=== PATIENT | female | born 1975 | race Hispanic/Latino ===

== ENCOUNTER 2017-06-13 23:19 | Observation (INO) | payer OTHER, SELFPAY ==
[2017-06-14 00:01] LABS: #Basophils 0.1 thou/uL (0.0-0.2); #Eosinphils 0.7 thou/uL (0.0-0.7); #Lymphocytes 3.9 thou/uL (1.20-3.40); #Monocytes 0.9 thou/uL (0.11-0.59); #Neutrophils 6.1 thou/uL (1.40-6.50); %Basophils 0.4 % (0.0-1.0); %Lymphocytes 33.3 % (21.0-51.0); %Monocytes 7.7 % (0.0-10.0); Hematocrit 31.7 % (36.0-47.0); Mean Platelet Volume 7.2 fL (7.4-10.4); Red Blood Cell (RBC) Count 4.14 mill/uL (4.20-5.40); White Blood Cell (WBC) Count 11.6 thou/uL (4.8-10.8)
--- NOTE | 2017-06-14 00:07 | RAD ---
CHEST ONE VIEW PORTABLE: 06/13/17 HISTORY: 42-year-old female with chest pain in the mid chest with pressure which began 30 minutes prior to ad mission. COMPARISON: 10/25/13. FINDINGS/IMPRESSION: Heart size is within normal limits. The lungs are clear. No pneumonia, edema, pleural effusion, or o ther acute intrathoracic disease. POS: [facility]
[2017-06-14 00:21] LABS: ALT (SGPT) 14 U/L (8-55); AST (SGOT) 12 U/L (5-34); Alkaline Phosphatase 104 U/L (40-150); Anion Gap 15 mmol/L (10-20); BUN (Urea Nitrogen) 14 mg/dL (7.0-18.7); Bilirubin, Total 0.3 mg/dL (0.2-1.2); CK (CPK) 69 U/L (29-168); Calc. Creatinine Clearance 0 mL/min (70-130); Calcium 9.4 mg/dL (7.8-10.44); Carbon Dioxide 25 mmol/L (22-29); Chloride 102 mmol/L (98-107); Estimated GFR-MDRD Greater than 90; Globulin 3.1 g/dL (2.4-3.5); Lipase 33 U/L (8-78)
[2017-06-14 00:24] LABS: Troponin I Less than 0.010 ng/mL (< 0.028)
[2017-06-14] MEDS ORDERED: Nitroglycerin 2% Ointment 1 INCH/1 GM Packet ONE (01:20)
[2017-06-14] MEDS ORDERED: Acetaminophen 325 MG TAB PO PRN (04:18)
[2017-06-14] MEDS ORDERED: Nitroglycerin 0.4 MG TAB (25 Tab Bottle) PO PRN (04:18)
[2017-06-14] MEDS ORDERED: Dextrose 5% in Water 1,000 ML IV PRN (04:18)
[2017-06-14] MEDS ORDERED: Dextrose 50% Abboject 50 ML SYRINGE SLOW IVP PRN (04:18)
[2017-06-14] MEDS ORDERED: HumaLOG 300 UNITS/3 ML VIAL SC PRN (04:18)
[2017-06-14 04:47] LABS: Troponin I Less than 0.010 ng/mL (< 0.028)
[2017-06-14 05:10] LABS: Iron 25 ug/dL (50-170)
--- NOTE | 2017-06-14 05:33 | HP ---
REASON FOR ADMISSION: Chest pain. HISTORY OF PRESENT ILLNESS: The patient gives history of having retrosternal chest pain which was more like a pressure, which started around 10:30 p.m. yesterday while she was sitting and watching TV. The pain was 5/10 in intensity to start with, and lasted until 3 in the morning until she came to emergency room. She has had similar episode of pain 6 months back which got resolved by itself. She has no complaints of cough or expectoration. No complaints of palpitations, PND or orthopnea. She had a stress test done 8 years back which was normal as far she can remember. PAST MEDICAL/SURGICAL HISTORY: Hypertension, diabetes mellitus type 2, dyslipidemia, history of asthma, history of diverticulitis, hypothyroidism, cholecystectomy, , hysterectomy. CURRENT MEDICATIONS: Atorvastatin 10 mg p.o. at bedtime, levothyroxine 125 mcg p.o. daily, metformin 1000 mg p.o. twice daily, quinapril 20 mg p.o. q.a.m., albuterol inhaler p.r.n., glipizide 5 mg p.o. twice daily, Levemir 22 units subcu daily. ALLERGIES: PENICILLIN and LATEX GLOVES. PERSONAL HISTORY: Does not abuse alcohol or drugs. No history of smoking. FAMILY HISTORY: Mother at the age of 73 years. She has had history of coronary artery disease and diabetes. Father at the age of 76 years and he has had similar medical issues. REVIEW OF SYSTEMS: The following complete review of systems was negative, unless otherwise mentioned in the HPI or below: Constitutional: Weight loss or gain, ability to conduct usual activities. Skin: Rash, itching. Eyes: Double vision, pain. ENT/Mouth: Nose bleeding, neck stiffness, pain, tenderness. Cardiovascular: Palpitations, dyspnea on exertion, orthopnea. Respiratory: Shortness of breath, wheezing, cough, hemoptysis, fever or night sweats. Gastrointestinal: Poor appetite, abdominal pain, heartburn, nausea, vomiting, constipation, or diarrhea. Genitourinary: Urgency, frequency, dysuria, nocturia. Musculoskeletal: Pain, swelling. Neurologic/Psychiatric: Anxiety, depression. Allergy/Immunologic: Skin rash, bleeding tendency. PHYSICAL EXAMINATION: GENERAL: The patient is a 42-year-old female who is currently not in any acute distress and is chest pain free. VITAL SIGNS: Blood pressure 124/76, pulse 74 per minute, respiratory rate 20 per minute, temperature 98.1 degrees Fahrenheit, saturating 100% on room air. NECK: Supple, no elevated JVD. HEENT: Eyes; extraocular muscles intact. Pupils reacting to light. Oral cavity; mucous membranes are moist. No exudates or congestion. CARDIOVASCULAR: S1, S2 heard. Regular rhythm. RESPIRATORY: Air entry 2+ bilateral. No rales or rhonchi. ABDOMEN: Soft, bowel sounds heard. No tenderness, rigidity or guarding. EXTREMITIES: No peripheral edema or calf tenderness. VASCULAR SYSTEM: Peripheral pulses 2+ bilateral, no ischemic ulcerations or gangrene. CENTRAL NERVOUS SYSTEM: No gross focal deficits seen. Patient is alert, awake , oriented x3. PSYCHIATRIC: The patient's mood is euthymic. No hallucinations or delusions. LABORATORY AND X-RAY FINDINGS: Chest x-ray done shows no infiltrate or cardiomegaly. Electrolytes are stable. First set of cardiac enzymes are negative. BUN 14, creatinine 0.6, glucose 98. Lipase is 33, white count of 11 , H\T\H 10 and 31, platelet count 367, MCV is 76 with 52% neutrophils. EKG done shows normal sinus rhythm at 78 beats per minute. CLINICAL IMPRESSION AND PLAN: The patient will be under observation on telemetry for chest pain, rule out acute coronary syndrome. She has multiple risk factors for acute coronary syndrome. We will obtain one more set of cardiac enzymes and follow ACS evidence based protocol including a nuclear stress test. We will continue her on aspirin, Lipitor, Synthroid, quinapril for now. We will hold her diabetic medications for now and restart after her stress test is done. We will continue to closely monitor her for any hemodynamic compromise. BRISEYDA
[2017-06-14] MEDS ORDERED: Levothyroxine Sodium 125 MCG TAB PO SCH (06:00)
[2017-06-14 07:34] LABS: Troponin I Less than 0.010 ng/mL (< 0.028)
[2017-06-14] MEDS ORDERED: Enoxaparin Sodium 40 MG/0.4 ML SYRINGE SC SCH (09:00)
[2017-06-14] MEDS ORDERED: Famotidine 20 MG TAB PO SCH (09:00)
[2017-06-14] MEDS ORDERED: FLU VACC QS2017-18 36 mo. & older 0.5 ML SYRINGE IM ONE (09:00)
[2017-06-14] MEDS ORDERED: Aspirin 325 MG TAB PO SCH (09:00)
[2017-06-14] MEDS ORDERED: Nitroglycerin 2% Ointment 1 INCH/1 GM Packet TOP SCH (10:00)
[2017-06-14 11:25] VITALS: BP 119/56; TEMP 98.1
--- NOTE | 2017-06-14 11:45 | NM ---
RADIONUCLE STRESS ONLY MYOCARDIAL PERFUSION SCAN WITH SPECT IMAGING LEFT VENTRICULAR WALL MOTION EVALUATION AND EJECTION FRACTION: History: Chest pain. FINDINGS: Heterogeneous uptake of the radiotracer is present throughout the left ventricular myocardium with s ome breast attenuation evident. No focal perfusion defects are visible. QGS analysis of gated spect images shows no focal wall motion abnormalities. LVEF equals 86%. IMPRESSION: Normal stress only myocardial perfusion scan. Normal LVEF. POS: [facility]
[2017-06-14] MEDS ORDERED: Regadenoson 0.4 MG/5 ML SYRINGE ONE (12:00)
--- NOTE | 2017-06-14 13:13 | DIS ---
DATE OF ADMISSION: 06/14/2017 DATE OF DISCHARGE: 06/14/2017 TRANSFER OF CARE DISPOSITION: Discharged home. PRIMARY CARE PROVIDER: Dr. Mariely Rowe. FINAL DIAGNOSES: Reflux esophagitis, atypical chest pain, iron deficiency anemia, diabetes mellitus type 2, hypertension, and dyslipidemia. DISCHARGE MEDICATIONS: Home medicines plus ferrous sulfate 325 twice a day, Protonix 40 mg a day. Routine medicines; atorvastatin 10 mg a day, Levemir insulin 22 units subcu daily, levothyroxine 125 mcg daily, quinapril 20 mg a day, Glucotrol-XL 5 mg twice a day, metformin 1000 mg twice a day. ALLERGIES: PENICILLIN. PENDING AT TIME OF DISCHARGE: Nothing. CODE STATUS: FULL. HOSPITAL COURSE: The patient presented with a kind of substernal to epigastric pressure, wakes her at night. She has had multiple episodes over the past several years because of worries of heart dis ease; she was placed in the hospital. Her cardiac enzymes were normal x3. Comp metabolic profile w as normal. CBC showed white count of 11.6, hemoglobin 10.2 with microcytic micro-chromic indices an d platelet count of 367. Ferritin was 7.11, iron saturation was 6. Nuclear medicine cardiac stress test is normal. It is my conclusion that the patient probably has esophagitis or gastritis. I sasha pect one or the other leading to iron deficiency anemia. No consultations were obtained. No proced ures were done. She is being discharged for followup with Dr. Rowe in 1 week. She has been gi neo a prescription for the Protonix and the iron as she will need 6 months of iron therapy to restor e her normal iron balance. In addition, I would suggest considering an outpatient gastroenterology referral for EGD for gastritis, esophagitis.
[2017-06-14] MEDS ORDERED: Atorvastatin Calcium 10 MG TAB PO SCH (21:00)
--- NOTE | 2017-06-16 12:09 | STRESS ---
Acquisition Time: 2017-06-14 08:51:11 Total Exercise Time: 00:01:00 Test Indications: CHEST PAIN Medications: Protocol: [facility] Max HR: 148 BPM 84% of Pred: 176 BPM Max BP: 128/088 mmHG Max Work Load: 1.0 METS RESTING ECG: NORMAL SINUS RHYTHM AT 93 BPM SYMPTOMS: NONE NORMAL BP RESPONSE ECTOPY: NONE ECG STRESS: NO SIGNIFICANT CHANGES INTERPRETATION: AWAIT NUCLEAR IMAGES FOR DEFINITIVE DIAGNOSIS Confirmed by JJ ELIAS ([id number]), editorial manager FRIDA CORTEZ ([id number]) on 06/16/2017 12:09:06 PM Referred By: MD Ramiro MUNOZ Confirmed By:JJ ELIAS
== END 2017-06-14 12:06 | disposition home or self-care (01) ==
LOC: ERS 23:19 → 2SW 06-14 03:27
PROVIDERS: ADMIT Internal Medicine; ATTEND Internal Medicine
DX: R07.89 Other chest pain (principal); K21.0 Gastro-esophageal reflux disease with esophagitis; D50.9 Iron deficiency anemia, unspecified; E11.9 Type 2 diabetes mellitus without complications; I10 Essential (primary) hypertension; E78.5 Hyperlipidemia, unspecified; J45.909 Unspecified asthma, uncomplicated; E03.9 Hypothyroidism, unspecified; Z79.4 Long term (current) use of insulin; Z79.899 Other long term (current) drug therapy; Z91.040 Latex allergy status; Z88.0 Allergy status to penicillin; Z91.048 Other nonmedicinal substance allergy status; Z90.49 Acquired absence of other specified parts of digestive tract; Z90.710 Acquired absence of both cervix and uterus; Z98.890 Other specified postprocedural states
CPT/HCPCS: 36415; 36416; 71010; 78452; 80053; 80061; 82550; 82553; 82607; 82728; 82746; 83540; 83550; 83690; 84484; 85025; 90471; 90682; 90732; 93005; 93017; 96372; A9500; G0008; G0009; G0378; J1650; J2785; Q2036

== ENCOUNTER 2018-08-18 15:04 | Emergency (ER) | payer OTHER, SELFPAY ==
[2018-08-18 15:36] LABS: Bilirubin Negative (Negative); Blood, Urine Negative (Negative); Clarity CLEAR (Clear); Glucose, Urine (Dipstick) Negative (Negative); Leukocyte Small (Negative); Nitrite Negative (Negative); Protein, Urine (Dipstick) Negative (Neg-Trace); Specific Gravity, Urine 1.008 (1.002-1.036); Urobilinogen 0.2 mg/dL (0.2-1.0)
[2018-08-18 15:38] LABS: Bacteria/HPF None Seen HPF (None Seen); Hyaline Casts/LPF 0-3 HYALINE CAST LPF (0-3 Hyaline); Pathc Cast-AUWi Flag 0.29 (0-2.49); RBC/HPF 0-3 HPF (0-3)
[2018-08-18 15:54] LABS: #Basophils 0.1 thou/uL (0.0-0.2); #Eosinphils 0.3 thou/uL (0.0-0.7); #Monocytes 0.6 thou/uL (0.11-0.59); #Neutrophils 6.2 thou/uL (1.40-6.50); %Basophils 0.5 % (0.0-1.0); %Eosinophils 3.4 % (0.0-10.0); %Lymphocytes 29.5 % (21.0-51.0); %Monocytes 5.6 % (0.0-10.0); %Neutrophils 60.9 % (42.0-75.0); Hemoglobin 11.7 g/dL (12.0-16.0); Mean Corpuscular HGB CONC 32.4 g/dL (32.0-36.0); Mean Corpuscular Hemoglobin 25.5 pg (27.0-31.0); Mean Corpuscular Volume 78.9 fL (78.0-98.0); Platelet Count 318 thou/uL (130-400); RBC Distribution Width 15.2 % (11.5-14.5); Red Blood Cell (RBC) Count 4.58 mill/uL (4.20-5.40); White Blood Cell (WBC) Count 10.2 thou/uL (4.8-10.8)
[2018-08-18 16:07] LABS: BHCG - Serum Negative (NEGATIVE); Pregs Control Background? CLEAR/WHITE (CLR/WHITE); Pregs Control Bar Appear? YES (CONTROL BAR)
[2018-08-18 16:15] LABS: ALT (SGPT) 15 U/L (8-55); AST (SGOT) 12 U/L (5-34); Alkaline Phosphatase 99 U/L (40-150); Anion Gap 14 mmol/L (10-20); BUN (Urea Nitrogen) 9 mg/dL (7.0-18.7); Bilirubin, Total 0.2 mg/dL (0.2-1.2); Calc. Creatinine Clearance 0 mL/min (70-130); Calcium 9.2 mg/dL (7.8-10.44); Carbon Dioxide 23 mmol/L (22-29); Chloride 104 mmol/L (98-107); Estimated GFR-MDRD Greater than 90; Globulin 3.2 g/dL (2.4-3.5); Glucose 170 mg/dL (70-105); Lipase 38 U/L (8-78); Potassium 3.7 mmol/L (3.5-5.1); Protein, Total 7.2 g/dL (6.0-8.3); Sodium 137 mmol/L (136-145)
--- NOTE | 2018-08-18 16:35 | ULT ---
PELVIC ULTRASOUND : 08/18/18 HISTORY: Left lower quadrant and pelvic pain. COMPARISON: 04/13/18. FINDINGS: Multiple transabdominal and endovaginal sonographic images of the pelvis a re obtained. The uterus a nd right adnexa structures are not well visualized on transabdominal imaging. There is a hypoechoic s tructure seen within the left adnexa only seen on transabdominal imaging which measures 5.9 cm, x 5.3 cm x 6 cm. there is posterior acoustic enhancement. There is internal echogenicity within this cysti c appearing lesion. This may be secondary to artifact given depth of this structure beneath the skin surface and this could potentially represent a left ovarian cystic lesion. However, this cannot be de finitively confirmed on this exam. A normal appearing left ovary is not visualized. The right ovary d emonstrates a normal sonographic appearance with peripheral follicles and is seen on endovaginal imag ing measuring 2,1 cm x 3 cm x 2 cm. Doppler evaluation of the right ovary with spectral analysis and color flow evaluation does demonstrate arterial flow within the right ovary. The uterus demonstrates a normal sonographic appearance measuring 7.9 cm x 5.6 cm x 6.1 cm. The endo metrial stripe measures 1 cm which is within normal limits in a normal menstruating female patient bu t would be abnormal in a postmenopausal female patient. No free fluid is seen in the pelvis. IMPRESSION: 1. Hypoechoic cystic appearing structure in the left adnexal region only seen on transabdominal imaging. This area could not be visualized on endovaginal imaging. A normal appearing left ovary is not visualized. This structure within the left adnexa does demonstrate internal echogenicity which ma y be artifactual given depth of this structure below the skin surface and could potentially represent a left adnexal cyst and possibly ovarian cyst, but this cannot be definitely confirmed on this exam. Followup pelvic ultrasound examination in six weeks is recommended. 2. Normal appearing uterus and right ovary. 3. Endometrial stripe measures 1 cm in thickness without fluid collection or fluid within the en dometrial canal. The thickness of the endometrium is within normal limits for a premenopausal female patient but would be abnormal in thickness in a postmenopausal female patient. POS: [facility]
[2018-08-18] MEDS ORDERED: HYDROcodone/Acetaminophen 5/325 mg Tablet ONE (16:48)
[2018-08-18] MEDS ORDERED: Ketorolac Tromethamine 60 MG/2 ML VIAL ONE (16:49)
== END 2018-08-18 17:30 | disposition home or self-care (01) ==
LOC: ERS 15:04
DX: N83.202 Unspecified ovarian cyst, left side (principal); E03.9 Hypothyroidism, unspecified; E11.9 Type 2 diabetes mellitus without complications; I10 Essential (primary) hypertension; J45.909 Unspecified asthma, uncomplicated; Z79.899 Other long term (current) drug therapy; Z79.4 Long term (current) use of insulin
CPT/HCPCS: 36415; 76856; 80053; 81003; 81015; 83690; 84703; 85025; 96372; J1885

== ENCOUNTER 2018-10-30 02:59 | Emergency (ER) | payer SELFPAY ==
[2018-10-30 03:48] LABS: Bilirubin Negative (Negative); Blood, Urine Negative (Negative); Clarity CLOUDY (Clear); Glucose, Urine (Dipstick) Negative (Negative); Leukocyte Large (Negative); Nitrite Negative (Negative); Protein, Urine (Dipstick) Negative (Neg-Trace); Specific Gravity, Urine 1.024 (1.002-1.036); Urobilinogen 0.2 mg/dL (0.2-1.0); pH, Urine 5.5 (5.0-9.0)
[2018-10-30 03:50] LABS: Bacteria/HPF 1+ HPF (None Seen); Hyaline Casts/LPF 7-10 HYALINE CAST LPF (0-3 Hyaline); Pathc Cast-AUWi Flag 1.01 (0-2.49)
[2018-10-30 03:56] LABS: Pregnancy Test - Urine (BHCG) Negative (Negative); Pregu Control Background? CLEAR/WHITE (CLR/WHITE); Pregu Control Bar Appear? YES (CONTROL BAR); Specific Gravity 1.024 (1.002-1.036)
[2018-10-30] MEDS ORDERED: Ondansetron PF 4 MG/2 ML Vial ONE (04:33)
[2018-10-30] MEDS ORDERED: Morphine 4 MG/ML VIAL ONE (04:33)
[2018-10-30 04:37] LABS: #Eosinphils 0.3 thou/uL (0.0-0.7); #Lymphocytes 2.7 thou/uL (1.20-3.40); #Monocytes 0.6 thou/uL (0.11-0.59); #Neutrophils 5.6 thou/uL (1.40-6.50); %Basophils 0.3 % (0.0-1.0); %Eosinophils 3.6 % (0.0-10.0); %Lymphocytes 29.2 % (21.0-51.0); %Monocytes 6.5 % (0.0-10.0); %Neutrophils 60.3 % (42.0-75.0); Hemoglobin 11.1 g/dL (12.0-16.0); Mean Corpuscular HGB CONC 32.7 g/dL (32.0-36.0); Mean Corpuscular Hemoglobin 25.9 pg (27.0-31.0); Mean Corpuscular Volume 79.2 fL (78.0-98.0); Platelet Count 335 thou/uL (130-400); RBC Distribution Width 15.6 % (11.5-14.5); White Blood Cell (WBC) Count 9.3 thou/uL (4.8-10.8)
[2018-10-30 04:57] LABS: ALT (SGPT) 10 U/L (8-55); AST (SGOT) 12 U/L (5-34); Albumin 3.9 g/dL (3.5-5.0); Alkaline Phosphatase 91 U/L (40-150); Anion Gap 16 mmol/L (10-20); BUN (Urea Nitrogen) 8 mg/dL (7.0-18.7); Bilirubin, Total 0.4 mg/dL (0.2-1.2); Calc. Creatinine Clearance 0 mL/min (70-130); Calcium 9.4 mg/dL (7.8-10.44); Carbon Dioxide 20 mmol/L (22-29); Chloride 105 mmol/L (98-107); Estimated GFR-MDRD 89; Globulin 3.1 g/dL (2.4-3.5); Glucose 129 mg/dL (70-105); Sodium 137 mmol/L (136-145)
[2018-10-30] MEDS ORDERED: Ketorolac Tromethamine 30 MG/ML VIAL ONE (05:25)
--- NOTE | 2018-10-30 07:38 | CT ---
ABDOMEN AND PELVIC CT WITH CONTRAST: INDICATION: Abdominal pain. COMPARISON: 01/08/2014. FINDINGS: The bowel is incompletely assessed without enteric contrast. There is no free air or ascites. No ac makah abnormality of the solid abdominal organs. Evidence of prior cholecystectomy. Imaged lung bases are clear. Punctate nephrolithiasis is seen at lower pole right kidney, nonobstructing. No acute o sseous abnormality. There is a 3.5 cm circumscribed subtle hypodense fat density component of the ve ntral abdominal wall, at the mid to lower abdomen. This is grossly stable and could relate to a mild ly complex lipomatous lesion. IMPRESSION: 1. No acute abnormality. 2. Nonobstructing right nephrolithiasis. POS: [facility]
[2018-10-30] MEDS ORDERED: ISOVUE-370 76%-LOCM 1 ML ONE (09:55)
--- NOTE | 2018-10-30 12:31 | ULT ---
PRELIMINARY REPORT/[facility]/EMERGENTY AFTER-HOURS PROCEDURE US Pelvis Complete, Transabdominal and US Pelvis, Transvaginal US Duplex Artery or Vein of the Abdominal and/or Reproductive Organs, Limited Ovaries EXAM DATE/TIME: 10/30/2018 3:35 AM CLINICAL HISTORY: 43 years old, female; Pain; Pelvic pain; Prior surgery; Surgery date: 6+ months; Surgery type: Lt oop horectomy (1998); Patient HX: Llq pain x yrs (on/off) TECHNIQUE: Real-time transabdominal and transvaginal pelvic ultrasound (complete) with image documentation. [place] svaginal imaging was used for better evaluation of the endometrium and adnexa. Real-time duplex ultra sound scan of the arterial or venous flow with chase scale, color Doppler flow and spectral waveform a nalysis. Limited duplex exam focused on the ovaries. Duplex exam was performed to evaluate for ovarian torsion or mass. COMPARISON: No relevant prior studies available. FINDINGS: Transabdominal ultrasound did not reveal detailed visualization of uterus. Right ovary was also not v isualized on transabdominal ultrasound. Therefore a transvaginal ultrasound was performed for further evaluation. Duplex ultrasound scan with color Doppler flow and spectral waveform analysis was also performed for evaluation of pelvic and ovarian blood flow and torsion. Uterus/cervix: Endometrium measures 1.3cm in thickness. No myometrial mass. Small Nabothian cyst. Right adnexa: No acute findings. No mass. Normal duplex of the ovary. No evidence of torsion. Left adnexa: Prior oopherectomy. Questionable mass versus bowel loop in the adnexa. Suboptimal evalua tion due to bowel gas. Free fluid: Trace. Bladder: Decompressed. IMPRESSION: Prior left oopherectomy. Questionable mass versus bowel loop in the left adnexa; recommend further ev aluation with contrast enhanced CT as indicated. Mildly thickened endometrium; correlate with menstrual cycle. Thank you for allowing us to participate in the care of your patient. Dictated and Authenticated by: Billy Suero MD 10/30/2018 4:54 AM Central Time ([place] & [place]) FINAL REPORT PELVIC ULTRASOUND: HISTORY: Pain. COMPARISON: None. TECHNIQUE: Transabdominal and endovaginal imaging of the pelvis was performed. Ovaries are interrogated with gr ay scale, color flow, Doppler imaging, and spectral waveform analysis. FINDINGS: This report is in agreement with the preliminary report by [facility]. Visualized uterus is unremarkable. Incidental Nabothian cyst is noted. Limited evaluation of the left adnexa. Questionable mass versus bowel loop. Refer to CT performed l ater on the same day for further evaluation. The right ovary has a normal appearance. POS: [facility]
== END 2018-10-30 06:56 | disposition home or self-care (01) ==
LOC: ERS 02:59
DX: R10.32 Left lower quadrant pain (principal); E03.9 Hypothyroidism, unspecified; E11.9 Type 2 diabetes mellitus without complications; I10 Essential (primary) hypertension; J45.909 Unspecified asthma, uncomplicated; F41.9 Anxiety disorder, unspecified; Z79.899 Other long term (current) drug therapy; Z79.51 Long term (current) use of inhaled steroids; Z79.4 Long term (current) use of insulin
CPT/HCPCS: 74177; 76856; 80053; 81003; 81015; 81025; 85025; 96361; 96374; 96375; J1885; J2270; J2405; Q9966

== ENCOUNTER 2019-03-26 12:47 | Outpatient (CLI) | payer OTHER ==
--- NOTE | 2019-03-26 13:37 | RAD ---
XR Foot Rt 3 View STANDARD HISTORY: Trauma to foot Findings: There are no signs of fracture or dislocation. A spur at the plantar fascia insertion is no yanique. IMPRESSION: No evidence of fracture.
== END 2019-03-26 12:48 | disposition home or self-care (01) ==
LOC: BICRAD 12:47
PROVIDERS: ATTEND Family Medicine
DX: M79.671 Pain in right foot (principal)

== ENCOUNTER 2019-04-01 03:13 | Emergency (ER) | payer SELFPAY ==
[2019-04-01 04:10] LABS: Bacteria/HPF None Seen HPF (None Seen); Bilirubin Negative (Negative); Blood, Urine Negative (Negative); Clarity Clear (Clear); Glucose, Urine (Dipstick) Normal (Negative); Leukocyte 250 Leu/uL (Negative); Nitrite Negative (Negative); Protein, Urine (Dipstick) Negative (Neg-Trace); Urobilinogen Normal mg/dL (Less than 2)
[2019-04-01 04:11] LABS: Pregnancy Test - Urine (BHCG) Negative (Negative); Pregu Control Background? CLEAR/WHITE (CLR/WHITE); Pregu Control Bar Appear? YES (CONTROL BAR); Specific Gravity 1.022 (1.002-1.036)
[2019-04-01] MEDS ORDERED: Morphine 4 MG/ML VIAL ONE (04:18)
[2019-04-01] MEDS ORDERED: Ketorolac Tromethamine 30 MG/ML VIAL ONE (04:18)
[2019-04-01 04:47] LABS: Hemoglobin 9.8 g/dL (12.0-16.0); Mean Corpuscular HGB CONC 30.4 g/dL (32.0-36.0); Mean Corpuscular Hemoglobin 21.9 pg (27.0-31.0); Mean Corpuscular Volume 71.9 fL (78.0-98.0); Platelet Count 254 thou/uL (130-400); Red Blood Cell (RBC) Count 4.46 mill/uL (4.20-5.40); White Blood Cell (WBC) Count 11.7 thou/uL (4.8-10.8)
[2019-04-01 04:49] LABS: ALT (SGPT) 10 U/L (8-55); AST (SGOT) 12 U/L (5-34); Albumin 3.9 g/dL (3.5-5.0); Alkaline Phosphatase 109 U/L (40-150); Anion Gap 13 mmol/L (10-20); BUN (Urea Nitrogen) 12 mg/dL (7.0-18.7); Bilirubin, Total 0.3 mg/dL (0.2-1.2); Calc. Creatinine Clearance 0 mL/min (70-130); Calcium 8.9 mg/dL (7.8-10.44); Carbon Dioxide 22 mmol/L (22-29); Chloride 104 mmol/L (98-107); Estimated GFR-MDRD Greater than 90; Globulin 2.9 g/dL (2.4-3.5); Glucose 139 mg/dL (70-105); Lipase 40 U/L (8-78); Potassium 3.9 mmol/L (3.5-5.1); Protein, Total 6.8 g/dL (6.0-8.3); Sodium 135 mmol/L (136-145)
[2019-04-01 05:06] LABS: #Eosinphils 0.3 thou/uL (0.0-0.7); #Monocytes 0.8 thou/uL (0.11-0.59); #Neutrophils 7.5 thou/uL (1.40-6.50); %Basophils 0.1 % (0.0-1.0); %Eosinophils 2.9 % (0.0-10.0); %Lymphocytes 25.5 % (21.0-51.0); %Monocytes 7.2 % (0.0-10.0); %Neutrophils 64.3 % (42.0-75.0); Anisocytosis SLIGHT = 6-15 cells (100X) (0-5/hpf); MDiff Complete? YES; Microcytosis SLIGHT = 6-15 cells (100X) (0-5/hpf)
--- NOTE | 2019-04-01 07:32 | ULT ---
TRANSVAGINAL AND TRANSABDOMINAL PELVIC ULTRASOUND: INDICATION: History of left lower quadrant abdominal pain. COMPARISON: Prior CT of the abdomen and pelvis dated 10/30/2018 and a pelvic ultrasound dated 10/30/2018. TECHNIQUE: Rosen scale, color Doppler and spectral Doppler images were obtained of the pelvis via transabdominal and transvaginal approach. FINDINGS: The uterus measures 9.96 x 5.6 x 6.4 cm. With an endometrial stripe measuring 1.75 cm. The right ovary measures 4.5 x 2.6 x 4.7 cm. There is a 3.4 cm cyst within the right ovary. The left ovary measures 2.3 x 1.2 x 2.4 cm. There are multiple small follicles within the left ovary . The more dominant left follicular cyst measures 1.5 cm. Flow was documented within the right ovary. Flow was slightly limited in documenting of the left ova ry due to patient's body habitus. Color Doppler images reveal very little flow; however, morphologic ally the left ovary appears within normal limits and similar to the comparison examinations. There is minimal free fluid within the pelvis. IMPRESSION: 1. Bilateral follicular cysts. 2. Minimal to mild free fluid within both ovaries. 3. Some technical limitations to the examination. 4. If there is continued concern for left lower quadrant abdominal pain, a MRI of the pelvis or CT a bdomen and pelvis examination with contrast may be helpful for further characterization. 5. Findings were discussed with Dr. Clark at 5:30 a.m. on 04/01/2019. CODE CR POS:
--- NOTE | 2019-04-01 07:36 | CT ---
CT OF THE ABDOMEN AND PELVIS WITH IV CONTRAST: INDICATION: Left lower adnexal pain and left lower quadrant abdominal pain. COMPARISON: CT of the abdomen and pelvis dated 10/30/2018 and pelvic ultrasound dated 04/01/2019. FINDINGS: Lung bases are clear. The gallbladder is surgically absent. The liver, pancreas, adrenal glands, spleen, and kidneys are normal-appearing. There is a tiny 1-2 m m calculus within the inferior pole of the right kidney that is stable to the prior examination. No free fluid or enlarged lymph nodes are evident. There is a normal appendix in the right lower quadrant of the abdomen. As seen on the comparison pelvic ultrasound is an 8.2 cm right ovarian follicular cyst. The left ova ry morphologically appears within normal limits by CT. Minimal free fluid is present within the pelv is. The bladder, rectum, and perirectal soft tissues are unremarkable-appearing. No enlarged lymph nodes are evident. The unopacified large and small bowel are normal-appearing. No acute osseous abnormality is evident. IMPRESSION: 1. No CT explanation for the patient's left lower quadrant abdominal pain. 2. Stable right-sided nephrolithiasis. POS: [facility]
[2019-04-01] MEDS ORDERED: ISOVUE-370 76%-LOCM 1 ML ONE (13:56)
== END 2019-04-01 07:14 | disposition home or self-care (01) ==
LOC: ERS 03:13
DX: N83.201 Unspecified ovarian cyst, right side (principal); N83.202 Unspecified ovarian cyst, left side; D64.9 Anemia, unspecified; R31.9 Hematuria, unspecified; E03.9 Hypothyroidism, unspecified; E11.9 Type 2 diabetes mellitus without complications; J45.909 Unspecified asthma, uncomplicated; F41.9 Anxiety disorder, unspecified; Z79.899 Other long term (current) drug therapy; Z79.4 Long term (current) use of insulin
CPT/HCPCS: 74177; 76856; 80053; 81003; 81015; 81025; 83690; 85025; 96374; 96375; J1885; J2270; Q9966

== ENCOUNTER 2019-05-31 11:10 | Outpatient (CLI) | payer OTHER ==
[2019-05-31 14:48] LABS: Hemoglobin 11.6 g/dL (12.0-16.0); Mean Corpuscular Hemoglobin 25.2 pg (27.0-31.0); Mean Corpuscular Volume 76.3 fL (78.0-98.0); Mean Platelet Volume 8.6 fL (7.4-10.4); Platelet Count 324 thou/uL (130-400); RBC Distribution Width 19.7 % (11.5-14.5); Red Blood Cell (RBC) Count 4.63 mill/uL (4.20-5.40); White Blood Cell (WBC) Count 11.3 thou/uL (4.8-10.8)
[2019-05-31 14:55] LABS: BHCG - Serum Negative (NEGATIVE); Hemoglobin A1c 6.7 % (4.0-6.0); Pregs Control Background? CLEAR/WHITE (CLR/WHITE); Pregs Control Bar Appear? YES (CONTROL BAR)
[2019-05-31 15:10] LABS: ALT (SGPT) 17 U/L (8-55); AST (SGOT) 13 U/L (5-34); Albumin 4.2 g/dL (3.5-5.0); Alkaline Phosphatase 99 U/L (40-150); Anion Gap 11 mmol/L (10-20); BUN (Urea Nitrogen) 10 mg/dL (7.0-18.7); Bilirubin, Direct 0.1 mg/dL (0.1-0.3); Bilirubin, Total 0.2 mg/dL (0.2-1.2); Calc. Creatinine Clearance 0 mL/min (70-130); Calcium 9.2 mg/dL (7.8-10.44); Carbon Dioxide 25 mmol/L (22-29); Chloride 103 mmol/L (98-107); Estimated GFR-MDRD 86; Glucose 245 mg/dL (70-105); Potassium 3.7 mmol/L (3.5-5.1); Protein, Total 6.7 g/dL (6.0-8.3); Sodium 135 mmol/L (136-145)
== END 2019-05-31 11:11 | disposition home or self-care (01) ==
LOC: LABBT 11:10
PROVIDERS: ATTEND Student in an Organized Health Care Education/Training Program
DX: Z01.818 Encounter for other preprocedural examination (principal); N83.8 Other noninflammatory disorders of ovary, fallopian tube and broad ligament; I10 Essential (primary) hypertension
CPT/HCPCS: 80048; 80076; 83036; 84703; 85027; 86850; 86900; 86901; 93005; 93010

== ENCOUNTER 2019-05-31 16:00 | Inpatient (IN) | payer OTHER ==
[2019-05-31 14:02] VITALS: BMI 38.2
[2019-06-04] MEDS ORDERED: Gabapentin 300 MG CAP ONE (06:39)
[2019-06-04] MEDS ORDERED: CeleCOXIB 100 MG CAP ONE (06:39)
[2019-06-04] MEDS ORDERED: Levofloxacin 500 mg/D5W 100 ml Premix Bag ONE (06:39)
[2019-06-04] MEDS ORDERED: Clindamycin/D5W 900 mg/50 ml Premix Bag ONE (06:39)
[2019-06-04] MEDS ORDERED: Famotidine/PF 20 mg/2ml Vial ONE (06:39)
[2019-06-04] MEDS ORDERED: Bupivacaine HCl 0.5%/Epinephrine 1:200,000/PF 30 ml Vial ONE (06:50)
[2019-06-04] MEDS ORDERED: Fentanyl 100 MCG/2 ML VIAL ONE ×3 (07:09→11:19)
[2019-06-04] MEDS ORDERED: SUGAMMADEX SODIUM 200 MG/2 ML VIAL ONE (07:25)
[2019-06-04] MEDS ORDERED: Meperidine HCl/PF 25 MG/ML VIAL ONE (09:13)
[2019-06-04] MEDS ORDERED: Bacitracin Zinc Ointment 30 gm TUBE ONE (09:40)
[2019-06-04] MEDS ORDERED: HYDROcodone/Acetaminophen 5/325 mg Tablet PO PRN ×2 (09:45)
[2019-06-04] MEDS ORDERED: Morphine 4 MG/ML VIAL SLOW IVP PRN (09:45)
[2019-06-04] MEDS ORDERED: Ondansetron PF 4 MG/2 ML Vial IVP PRN (09:47)
[2019-06-04] MEDS ORDERED: Bisacodyl 10 MG SUPP PR PRN (09:47)
[2019-06-04] MEDS ORDERED: Dextrose 50% Abboject 50 ML SYRINGE SLOW IVP PRN (09:47)
[2019-06-04] MEDS ORDERED: Zolpidem Tartrate 5 MG TAB PO PRN (09:47)
[2019-06-04] MEDS ORDERED: Simethicone Chewable 80 MG TAB PO PRN (09:47)
[2019-06-04] MEDS ORDERED: Promethazine HCl 25 MG/ML VIAL IM PRN ×2 (09:47→10:02)
[2019-06-04] MEDS ORDERED: Dextrose 5% in Water 1,000 ML IV PRN (09:47)
[2019-06-04] MEDS ORDERED: diphenhydrAMINE 25 MG CAP PO PRN (09:47)
[2019-06-04] MEDS ORDERED: Promethazine HCl 25 MG/ML VIAL SLOW IVP PRN (10:02)
[2019-06-04] MEDS ORDERED: Ondansetron HCl/PF 4 MG/2 ML Vial IVP PRN (10:02)
[2019-06-04] MEDS: Estradiol 0.05mg/24 Hour Patch (Weekly) TD SCH ×2 (12:35→21:32)
[2019-06-04] MEDS: Ketorolac Tromethamine 30 MG/ML VIAL IVP SCH ×2 (12:40→18:16)
[2019-06-04] MEDS: Sodium Chloride 0.9% 1,000 ML IV SCH ×2 (12:40→18:16)
[2019-06-04] MEDS: HumaLOG 300 UNITS/3 ML VIAL SC PRN ×2 (13:18→21:32)
[2019-06-04] MEDS: Mometasone 200 MCG HFA INHALER INH SCH (19:19)
[2019-06-04] MEDS ORDERED: Fluticasone Propionate HFA 110 MCG AER INH SCH (21:00)
[2019-06-05] MEDS: Ketorolac Tromethamine 30 MG/ML VIAL IVP SCH (00:16)
[2019-06-05] MEDS ORDERED: Ibuprofen 800 MG TAB PO SCH (06:00)
[2019-06-05] MEDS ORDERED: Levothyroxine Sodium 125 MCG TAB PO SCH (06:00)
[2019-06-05] MEDS ORDERED: INSULIN DETEMIR SQ SCH (06:00)
[2019-06-05 06:34] LABS: Hemoglobin 11.6 g/dL (12.0-16.0); Mean Corpuscular Hemoglobin 25.2 pg (27.0-31.0); Mean Corpuscular Volume 78.9 fL (78.0-98.0); Mean Platelet Volume 9.3 fL (7.4-10.4); Platelet Count 277 thou/uL (130-400); RBC Distribution Width 19.8 % (11.5-14.5); White Blood Cell (WBC) Count 12.2 thou/uL (4.8-10.8)
[2019-06-05] MEDS: HumaLOG 300 UNITS/3 ML VIAL SC PRN (06:42)
[2019-06-05] MEDS: Sodium Chloride 0.9% 1,000 ML IV SCH (06:53)
[2019-06-05 06:57] LABS: Anion Gap 12 mmol/L (10-20); BUN (Urea Nitrogen) 6 mg/dL (7.0-18.7); Calc. Creatinine Clearance 172 mL/min (70-130); Calcium 8.7 mg/dL (7.8-10.44); Carbon Dioxide 22 mmol/L (22-29); Chloride 107 mmol/L (98-107); Estimated GFR-MDRD Greater than 90; Glucose 166 mg/dL (70-105); Potassium 3.8 mmol/L (3.5-5.1); Sodium 137 mmol/L (136-145)
[2019-06-05] MEDS: Mometasone 200 MCG HFA INHALER INH SCH (07:27)
[2019-06-05 07:50] VITALS: BP 130/72; TEMP 98.6
[2019-06-05] MEDS ORDERED: metFORMIN 500 MG TAB PO SCH (08:00)
--- NOTE | 2019-06-05 08:14 | PDOC.EVN ---
Event Note - Event Note Event Note: Pt seen and evaluated POD 1 s/p RATLH with BSO. Pt is doing well this am. She has minimal pain. No vaginal bleeding. No incisional concerns. She has been up and ambulatory to the restroom with steady gait. She is urinating normally and passing gas. She has been eating and drinking well.She has no leg pain, swelling, chest pain or shortness of breath. PT VSS, afebrile. Pt resting comfortable in bed and fully dressing. Respiratory effort is unlabored. Abdomen is soft with minimal tenderness. Incisions dry and intact. LE demonstrate no swelling or tenderness. Pt remains neurologically intact. CBC reviewed. H&H is stable. Pathology is pending at this time. Pt s/p RATLH with RSO. Pt doing well and will be discharge this am. She will follow up in office in 2 weeks. Her prescriptions have already been sent to pharmacy. Discharge planning discussed and all questions answered. HTN-blood pressure controlled and she will resume home meds. DMII- blood sugars controlled and she will resume her home regimen and follow up with PCP. Asthma- controlled at this time. No wheezing at this time. She will resume home meds. Hypercholesterolemia- pt will resume home meds.
[2019-06-05] MEDS ORDERED: 2 PO SCH (09:00)
[2019-06-05] MEDS ORDERED: Insulin Glargine 32 UNITS in Pre-Filled Syringe 1 EACH SC SCH (09:00)
--- NOTE | 2019-06-05 14:47 | OP ---
DATE OF PROCEDURE: 06/04/2019 PREOPERATIVE DIAGNOSES: Pelvic pain, left adnexal mass, history of endometriosis, and menorrhagia. POSTOPERATIVE DIAGNOSES: 1. Pelvic pain. 2. Menorrhagia. 3. Adenomyosis. PROCEDURES PERFORMED: Robotic-assisted total laparoscopic hysterectomy, bilateral salpingo-oophorectomy. ANESTHESIA: General endotracheal. ADMINISTRATIVE OPERATIONS COORDINATOR SURGEON: Kaylyn Dyer PA-C ESTIMATED BLOOD LOSS: 50 mL. IVF: 1500 mL crystalloid. URINE OUTPUT: 550 mL clear urine. COMPLICATIONS: None. DRAINS: Correia catheter. PATHOLOGY: Uterus, cervix, bilateral fallopian tubes and ovary. FINDINGS: A 12-week size uterus sounded to 11 cm. Appeared globally enlarged with a thickened uterine wall. The fallopian tubes were normal prior tubal ligation. The patient had reported a history of left oophorectomy; however, the left ovary was there and left adnexal mass had resolved, and there was a cyst on the right ovary that contained clear fluid following removal. The ureters were noted bilaterally transperitoneally, throughout the case intact and away from the surgical site. Excellent hemostasis was noted. OPERATIVE TECHNIQUE: The patient was taken to the operating room, where general anesthesia was obtained without difficulty. The patient was prepped and draped in a sterile fashion in dorsal lithotomy position. Correia catheter was placed in the bladder. A speculum was placed in the vagina. The anterior lip of the cervix was grasped with a single-tooth tenaculum. The cervix was dilated with Perez dilators and then sounded to 11 cm. The DEON manipulator was assembled with a 10 cm tip and a 4 cm colpotomizer ring. The DEON manipulator was inserted. The speculum and tenaculum were removed out of the vagina, and the legs were placed in low lithotomy. Attention was turned to the abdomen. 0.5% Marcaine with epinephrine was infiltrated into the umbilicus, and a 12 mm skin incision was made. The Veress needle was passed into the abdomen, however, increased pressures. Opening pressures were noted. The patient had a prior vertical laparotomy, and it was felt likely this was representing adhesions at the umbilicus. Therefore, decision was made to proceed with a left upper quadrant entry. Two fingerbreadths below the costal margin midclavicular line on the left side was infiltrated with 0.5% Marcaine with epinephrine. A 5 mm skin incision was made, and a Veress needle was passed into the abdomen noting an opening pressure of 3 mmHg. Previously, it was confirmed the patient had an OG in. The trocar and 5-mm camera were then inserted into the abdomen, and there were omental adhesions at the umbilicus present. The 8 mm robotic trocars were placed in the right and left lower quadrants after infiltrating with anesthetic under direct visualization at that time. A right upper quadrant assistant food service manager port that was 11 mm was also placed under direct visualization after infiltrating with anesthetic. The scissors were then used to take down the adhesions at the umbilicus in order to insert the port at that time. Then, the 12 mm port was inserted under direct visualization. Steep Trendelenburg was obtained. The robot was then docked. The right robotic arm contained the monopolar scissors, left robotic arm contained a fenestrated bipolar. The surgeon console then took control. The right fallopian tube was elevated as well as the ovary. The ureter was identified at the pelvic brim. The IP was clamped with the fenestrated and cauterized, then incised. The mesovarium was clamped, cauterized, and incised, taking the incision down to the midportion of the round ligament that was cauterized and transected. The posterior leaf of the broad ligament was dropped down to the level of the uterosacral ligament, and the retroperitoneum was then dissected off the uterine vessels, and the ureter was again identified laterally. The anterior leaf of the broad ligament was incised, and the bladder flap was then created incising the reticular fibers with the scissors while tenting up the vesicouterine peritoneum after incision. Attention was turned to the left side, where left fallopian tube and ovary were elevated. There were some adhesions of the left ovary to the sigmoid. These were carefully taken down with the use of scissors. Once this was freed up, the ureter was identified at the pelvic brim medially. The IP was clamped underneath the ovary and cauterized. The IP was dissected out of the peritoneum in order to prevent the lateral thermal spread to the bowel or the ureter. Once IP was transected, the mesovarium was also clamped, cauterized, transected. The round ligament was cauterized with the fenestrated and incised with the scissors. The posterior leaf of the broad ligament was dropped down and the anterior leaf was also incised down to the level of the bladder flap. The vessels were skeletonized carefully. Once the vessels were adequately skeletonized, the uterine pedicle was cauterized multiple times with the fenestrated. The right side uterine vessels were also cauterized multiple times. The bladder flap was finally completed while scoring on the pubocervical fascia at the level of the colpotomizer ring and bluntly dissecting the supporting tissue down below the level of the colpotomizer ring with the back end of the scissors. Anterior colpotomy was performed. The vessels were incised. Hemostasis was achieved of the uterine pedicles, and the posterior colpotomy was completed. The uterus was then removed into the vagina, and the hemostasis was achieved of the vaginal cuff. The vaginal cuff was irrigated. The scissors were traded out for the needle fuel oil truck driver, and the 2-0 barbed STRATAFIX suture was used to close the vaginal cuff in a running fashion incorporating vaginal mucosa in each bite as well as posterior peritoneum. The closure was excellent, and the needle was removed out of the abdomen. Irrigation was again performed of the pelvis. Low pressure check was performed, and hemostasis was noted. The ureters were again noted bilaterally and well out of harm's way. All instruments were removed out of the abdomen. The robot was undocked. The fascia of the camera port was closed with a 0 Vicryl in a [id number] fashion. The skin was closed with a 4-0 Monocryl in a subcuticular fashion. Dermabond was applied. The vaginal cuff was checked and noted to be hemostatic vaginally, and all instruments removed out of the vagina. The patient tolerated the procedure well. Sponge, lap, and needle counts were correct x2. The patient was taken to recovery in stable condition. The patient received Levaquin and clindamycin prior to the procedure. Job ID: [id number]
[2019-06-05] MEDS ORDERED: Atorvastatin Calcium 10 MG TAB PO SCH (21:00)
== END 2019-06-05 10:09 | disposition home or self-care (01) | DRG 743 ==
LOC: SURG A 06-04 06:19 → 3SE 06-04 10:34
PROVIDERS: ADMIT Student in an Organized Health Care Education/Training Program; ATTEND Student in an Organized Health Care Education/Training Program
PROC: 0UT24ZZ Resection of Bilateral Ovaries, Percutaneous Endoscopic Approach (ICD-10-PCS; principal; 2019-06-04)
PROC: 0UT74ZZ Resection of Bilateral Fallopian Tubes, Percutaneous Endoscopic Approach (ICD-10-PCS; 2019-06-04)
PROC: 0UT94ZZ Resection of Uterus, Percutaneous Endoscopic Approach (ICD-10-PCS; 2019-06-04)
PROC: 8E0W4CZ Robotic Assisted Procedure of Trunk Region, Percutaneous Endoscopic Approach (ICD-10-PCS; 2019-06-04)
DX: N80.0 Endometriosis of uterus (principal); R19.09 Other intra-abdominal and pelvic swelling, mass and lump; N92.0 Excessive and frequent menstruation with regular cycle; N83.201 Unspecified ovarian cyst, right side; I10 Essential (primary) hypertension; E11.9 Type 2 diabetes mellitus without complications; J45.909 Unspecified asthma, uncomplicated; E78.00 Pure hypercholesterolemia, unspecified
CPT/HCPCS: 36415; 36416; 80048; 85027; 88307; J0131; J0670; J1815; J1885; J1956; J2175; J3010; J3490; Q0163; S0028

== ENCOUNTER 2020-02-17 10:59 | Emergency (ER) | payer SELFPAY ==
[2020-02-17 11:43] LABS: #Eosinphils 0.2 thou/uL (0.0-0.7); #Lymphocytes 2.5 thou/uL (1.20-3.40); #Monocytes 0.5 thou/uL (0.11-0.59); #Neutrophils 6.3 thou/uL (1.40-6.50); %Basophils 0.4 % (0.0-1.0); %Eosinophils 2.4 % (0.0-10.0); %Lymphocytes 25.8 % (21.0-51.0); %Monocytes 5.4 % (0.0-10.0); %Neutrophils 65.9 % (42.0-75.0); Hemoglobin 13.4 g/dL (12.0-16.0); Mean Corpuscular HGB CONC 32.5 g/dL (32.0-36.0); Mean Corpuscular Hemoglobin 27.2 pg (27.0-31.0); Mean Corpuscular Volume 83.8 fL (78.0-98.0); Mean Platelet Volume 8.3 fL (7.4-10.4); Platelet Count 293 thou/uL (130-400); RBC Distribution Width 14.6 % (11.5-14.5); Red Blood Cell (RBC) Count 4.92 mill/uL (4.20-5.40); White Blood Cell (WBC) Count 9.5 thou/uL (4.8-10.8)
[2020-02-17 12:07] LABS: ALT (SGPT) 53 U/L (8-55); AST (SGOT) 47 U/L (5-34); Albumin 4.4 g/dL (3.5-5.0); Alkaline Phosphatase 124 U/L (40-110); Anion Gap 15 mmol/L (10-20); BUN (Urea Nitrogen) 12 mg/dL (7.0-18.7); Bilirubin, Total 0.5 mg/dL (0.2-1.2); Calc. Creatinine Clearance 0 mL/min (70-130); Calcium 9.8 mg/dL (7.8-10.44); Carbon Dioxide 22 mmol/L (22-29); Chloride 101 mmol/L (98-107); Estimated GFR-MDRD 72; Globulin 3.2 g/dL (2.4-3.5); Glucose 327 mg/dL (70-105); Potassium 3.9 mmol/L (3.5-5.1); Protein, Total 7.6 g/dL (6.0-8.3); Sodium 134 mmol/L (136-145)
[2020-02-17 12:32] LABS: BHCG - Serum Negative (NEGATIVE); Pregs Control Background? CLEAR/WHITE (CLR/WHITE); Pregs Control Bar Appear? YES (CONTROL BAR)
== END 2020-02-17 15:18 | disposition home or self-care (01) ==
LOC: ERS 10:59
DX: E11.65 Type 2 diabetes mellitus with hyperglycemia (principal); E03.9 Hypothyroidism, unspecified; I10 Essential (primary) hypertension; J45.909 Unspecified asthma, uncomplicated; F41.9 Anxiety disorder, unspecified
CPT/HCPCS: 36415; 36416; 80053; 84703; 85025; 99284

== ENCOUNTER 2020-10-12 11:17 | Emergency (ER) | payer SELFPAY ==
--- NOTE | 2020-10-12 11:41 | RAD ---
Exam: Chest one view HISTORY:Chest pain, x30 minutes Comparison: 06/13/2017 FINDINGS: Cardiac silhouette: Normal Aorta: Atherosclerosis Pulmonary vessels: Normal Costophrenic angles: Clear LUNGS: No masses or consolidation. Pneumothorax: None Osseous abnormalities: None IMPRESSION: No acute cardiopulmonary process. Atherosclerosis
[2020-10-12 12:09] LABS: #Basophils 0.1 thou/uL (0.0-0.2); #Eosinphils 0.2 thou/uL (0.0-0.7); #Lymphocytes 3.8 thou/uL (1.20-3.40); #Neutrophils 7.6 thou/uL (1.40-6.50); %Basophils 0.5 % (0.0-1.0); %Eosinophils 1.6 % (0.0-10.0); %Lymphocytes 29.9 % (21.0-51.0); %Monocytes 7.9 % (0.0-10.0); %Neutrophils 60.2 % (42.0-75.0); Mean Corpuscular HGB CONC 33.4 g/dL (32.0-36.0); Mean Corpuscular Hemoglobin 27.7 pg (27.0-31.0); Mean Corpuscular Volume 82.9 fL (78.0-98.0); Mean Platelet Volume 7.9 fL (7.4-10.4); Platelet Count 311 thou/uL (130-400); RBC Distribution Width 15.2 % (11.5-14.5); Red Blood Cell (RBC) Count 5.08 mill/uL (4.20-5.40); White Blood Cell (WBC) Count 12.6 thou/uL (4.8-10.8)
[2020-10-12 12:31] LABS: ALT (SGPT) 31 U/L (8-55); AST (SGOT) 19 U/L (5-34); Albumin 4.5 g/dL (3.5-5.0); Alkaline Phosphatase 115 U/L (40-110); Anion Gap 13 mmol/L (10-20); BUN (Urea Nitrogen) 16 mg/dL (7.0-18.7); Bilirubin, Total 0.4 mg/dL (0.2-1.2); Calc. Creatinine Clearance 0 mL/min (70-130); Calcium 9.6 mg/dL (7.8-10.44); Carbon Dioxide 27 mmol/L (22-29); Chloride 100 mmol/L (98-107); Globulin 3.6 g/dL (2.4-3.5); Glucose 189 mg/dL (70-105); Potassium 3.6 mmol/L (3.5-5.1); Protein, Total 8.1 g/dL (6.0-8.3); Sodium 136 mmol/L (136-145)
== END 2020-10-12 17:33 | disposition left against medical advice (07) ==
LOC: ERS 11:17
DX: Z53.21 Procedure and treatment not carried out due to patient leaving prior to being seen by health care provider (principal)
CPT/HCPCS: 36415; 71045; 80053; 84484; 85025; 93005

== ENCOUNTER 2021-04-02 15:57 | Emergency (ER) | payer SELFPAY ==
[~2021-04-02 15:57] MED LIST: Iopamidol-370 76% 500 ML 1 ML ONE
[2021-04-02 17:14] LABS: #Basophils 0.1 thou/uL (0.0-0.2); #Eosinphils 0.2 thou/uL (0.0-0.7); #Lymphocytes 3.1 thou/uL (1.20-3.40); #Monocytes 0.7 thou/uL (0.11-0.59); #Neutrophils 6.8 thou/uL (1.40-6.50); %Basophils 0.5 % (0.0-1.0); %Eosinophils 1.9 % (0.0-10.0); %Lymphocytes 28.6 % (21.0-51.0); %Monocytes 6.6 % (0.0-10.0); %Neutrophils 62.3 % (42.0-75.0); Hemoglobin 14.1 g/dL (12.0-16.0); Mean Corpuscular HGB CONC 32.5 g/dL (32.0-36.0); Mean Corpuscular Hemoglobin 27.1 pg (27.0-31.0); Mean Corpuscular Volume 83.1 fL (78.0-98.0); Mean Platelet Volume 7.9 fL (7.4-10.4); Platelet Count 302 thou/uL (130-400); Red Blood Cell (RBC) Count 5.21 mill/uL (4.20-5.40)
[2021-04-02 17:44] LABS: ALT (SGPT) 29 U/L (8-55); AST (SGOT) 24 U/L (5-34); Albumin 4.6 g/dL (3.5-5.0); Alkaline Phosphatase 118 U/L (40-110); Anion Gap 17 mmol/L (10-20); BUN (Urea Nitrogen) 6 mg/dL (7.0-18.7); Bilirubin, Total 0.4 mg/dL (0.2-1.2); Calc. Creatinine Clearance 0 mL/min (70-130); Calcium 10.1 mg/dL (7.8-10.44); Carbon Dioxide 22 mmol/L (22-29); Chloride 104 mmol/L (98-107); Globulin 3.6 g/dL (2.4-3.5); Glucose 136 mg/dL (70-105); Protein, Total 8.2 g/dL (6.0-8.3); Sodium 139 mmol/L (136-145)
[2021-04-02] MEDS ORDERED: Morphine 4 MG/ML VIAL ONE (19:56)
[2021-04-02] MEDS ORDERED: Ondansetron PF 4 MG/2 ML Vial ONE (19:56)
[2021-04-02] MEDS ORDERED: diphenhydrAMINE 50 MG/ML VIAL ONE (20:42)
== END 2021-04-02 21:35 | disposition home or self-care (01) ==
LOC: ERS 15:57
DX: K59.00 Constipation, unspecified (principal); E03.9 Hypothyroidism, unspecified; E11.9 Type 2 diabetes mellitus without complications; I10 Essential (primary) hypertension; Z79.4 Long term (current) use of insulin; Z79.899 Other long term (current) drug therapy
CPT/HCPCS: 36415; 74177; 80053; 83690; 85025; 96374; 96375; J1200; J2270; J2405; Q9967

== ENCOUNTER 2023-04-30 06:26 | Emergency (ER) | payer SELFPAY | END 2023-04-30 07:35 | disposition home or self-care (01) | LOC: ERS 06:26 | DX: S61.412A Laceration without foreign body of left hand, initial encounter (principal); E03.9 Hypothyroidism, unspecified; E11.9 Type 2 diabetes mellitus without complications; I10 Essential (primary) hypertension; W26.9XXA Contact with unspecified sharp object(s), initial encounter | CPT/HCPCS: 12001 ==